=== PATIENT | male | born 1995 | race Hispanic/Latino ===

== ENCOUNTER 2021-03-11 01:30 | Emergency (ER) | payer BC ==
[~2021-03-11] VITALS: Ht 172.7 cm; Wt 114.8 kg
[2021-03-11 01:35] VITALS: BP 133/86
[2021-03-11] MEDS ORDERED: LIDOCAINE HCL 1% 20 ML VIAL INJ SCH (02:00)
[2021-03-11] MEDS ORDERED: ACET-66 PO (02:16)
[2021-03-11] MEDS ORDERED: CEPH500B PO (02:16)
== END 2021-03-11 02:38 | disposition home or self-care (01) ==
LOC: EDH 01:30
DX: L05.01 Pilonidal cyst with abscess (principal)
CPT/HCPCS: 10080; 87070; 87076